=== PATIENT | male | born 1950 | race Caucasian/White ===

== ENCOUNTER → 2017-09-04 | Outpatient (CLI) | payer OTHER | END | disposition home or self-care (01) | LOC: CDC 08:16 | DX: Z01.810 Encounter for preprocedural cardiovascular examination (principal); K42.9 Umbilical hernia without obstruction or gangrene; I44.4 Left anterior fascicular block; I45.10 Unspecified right bundle-branch block | CPT/HCPCS: 93000 ==

== ENCOUNTER 2017-10-19 07:08 | Day surgery (SDC) | payer OTHER ==
[~2017-10-19] VITALS: Ht 177.8 cm; Wt 108.8 kg
[~2017-10-19 07:08] MED LIST: ACTOS45 MG PO; AMARYL4 MG PO; JANUVIA100 MG PO; LIPITOR40 MG PO; MEN'S MULTI-VI1 EACH PO; NORVASC10 MG PO; PRILOSEC OTC20 MG PO; ZESTRIL40 MG PO
[2017-10-19 07:33] VITALS: BP 137/63
[2017-10-19] MEDS ORDERED: NORCO 5/3251 TABLET PO (10:24)
[2017-10-19 11:47] VITALS: BP 155/67
[2017-10-19 12:36] VITALS: BP 138/64
[2017-10-19 14:35] VITALS: BP 170/77
[2017-10-19 15:28] VITALS: BP 140/76
== END 2017-10-19 15:30 | disposition home or self-care (01) ==
LOC: SDC 07:08
PROVIDERS: Surgery
PROC: 0WUF4JZ Supplement Abdominal Wall with Synthetic Substitute, Percutaneous Endoscopic Approach (ICD-10-PCS; principal; 2017-10-19)
DX: K42.9 Umbilical hernia without obstruction or gangrene (principal); I10 Essential (primary) hypertension; E11.9 Type 2 diabetes mellitus without complications; I44.4 Left anterior fascicular block; I45.10 Unspecified right bundle-branch block; E78.5 Hyperlipidemia, unspecified; Z87.891 Personal history of nicotine dependence
CPT/HCPCS: 82948; C1781; J0690; J1100; J1170; J2250; J2405; J3010

== ENCOUNTER 2017-10-28 18:55 | Inpatient (IN) | payer OTHER ==
[~2017-10-28] VITALS: Ht 177.8 cm; Wt 100.2 kg
[~2017-10-28 18:55] MED LIST changes: +NORCO 5/3251 TABLET PO
[2017-10-28 19:36] LABS: HEMATOCRIT 41.9 % (38.0-50.0); HEMOGLOBIN 14.3 G/DL (12.5-16.6); MCH 28.7 PG (29.0-34.0); MCHC 34.1 G/DL (30.0-36.0); RBC DIS.WIDTH-CV 12.8 % (11.8-14.6); RBC DIS.WIDTH-SD 38.9 % (39-53); RED BLOOD COUNT 4.99 M/uL (4.00-5.50); WHITE BLOOD COUNT 14.5 K/uL (4.1-10.2)
[2017-10-28 19:40] LABS: PLATELET COUNT 396 K/uL (156-360)
[2017-10-28 20:03] LABS: APPEARANCE SL.HAZY ((CLEAR)); BILIRUBIN NEGATIVE; BLOOD NEGATIVE; COLOR YELLOW ((YELLOW)); GLUCOSE (STRIP) 50; KETONES NEGATIVE; LEUKOCYTES NEGATIVE; NITRITE NEGATIVE; PROTEIN (STRIP) 30; SPECIFIC GRAVITY 1.023 (1.000-1.030); UROBILINOGEN 0.2 MG/DL (0.2-1.0)
[2017-10-28 20:22] LABS: ALBUMIN 4.3 g/dL (3.2-4.8); CHLORIDE 99 mEq/L (99-109); POTASSIUM 4.4 mEq/L (3.7-5.4); SODIUM 138 mEq/L (136-147)
[2017-10-28 20:25] LABS: GLUCOSE 266 mg/dL (70-99); TOTAL PROTEIN 8.4 g/dL (6.4-8.3)
[2017-10-28 20:27] LABS: TOTAL BILIRUBIN 0.7 mg/dL (0.0-1.0)
[2017-10-28 20:28] LABS: ALKALINE PHOSPHATASE 136 IU/L (3-129); CREATININE 2.2 mg/dL (0.6-1.3); GFR ESTIMATE (CALCULATED) 32 mL/min/ (58.99-99999)
[2017-10-28 20:29] LABS: UREA NITROGEN (BUN) 46 mg/dL (9-23)
[2017-10-28 20:30] LABS: AST (GOT) 17 IU/L (2-34)
[2017-10-28 20:31] LABS: ALT (GPT) 28 IU/L (3-49)
[2017-10-28 20:38] LABS: BACTERIA RARE /HPF; EPITHELIAL CELLS RARE /HPF; MUCUS 3+ /LPF; RED BLOOD CELLS RARE /HPF (0-5); UCUL ADDED? NO; WHITE BLOOD CELLS RARE /HPF (0-5)
[2017-10-28 20:39] LABS: AMORPHOUS URATES CRYSTALS RARE
[2017-10-28] MEDS ORDERED: ZANTAC75 M1 PO (23:04)
[2017-10-28] MEDS ORDERED: TYLENOL ARTHRI650 MG PO (23:04)
[2017-10-29 00:40] VITALS: BP 162/75
[2017-10-29 05:56] LABS: C DIFF TOXIN NEGATIVE (NEGATIVE)
[2017-10-29 06:48] LABS: CHLORIDE 103 MEQ/L (99-109); GFR ESTIMATE (CALCULATED) 35 mL/min/ (58.99-99999); GLUCOSE 224 mg/dL (70-99); SODIUM 139 MEQ/L (136-147); UREA NITROGEN (BUN) 47 mg/dL (9-23)
[2017-10-29 07:33] VITALS: BP 171/82
[2017-10-29 09:00] VITALS: BP 155/73
[2017-10-29 10:54] LABS: BASOPHIL (%) 0.1 % (0-1); EOSINOPHIL (%) 0 % (0-5); HEMATOCRIT 35.2 % (38.0-50.0); IMMATURE GRANULOCYTE (%) 0.1 % (0.0-0.7); LYMPHOCYTE (%) 8.5 % (15-42); LYMPHOCYTE COUNT 0.7 K/uL (1.0-2.8); MCH 28.4 PG (29.0-34.0); MCHC 32.4 G/DL (30.0-36.0); MCV 87.6 FL (86-99); MONOCYTE (%) 12.7 % (3-12); NEUTROPHIL (%) 78.6 % (45-76); NEUTROPHIL COUNT 6.1 K/uL (1.8-6.4); RBC DIS.WIDTH-CV 13.1 % (11.8-14.6); RBC DIS.WIDTH-SD 42.1 % (39-53); RED BLOOD COUNT 4.02 M/uL (4.00-5.50); WHITE BLOOD COUNT 7.7 K/uL (4.1-10.2)
[2017-10-29 10:57] LABS: HEMOGLOBIN 11.4 G/DL (12.5-16.6)
[2017-10-29 11:04] LABS: PLAT.SUFFICIENCY ADEQUATE
[2017-10-29 11:05] LABS: PLATELET COUNT 265 K/uL (156-360)
[2017-10-29 11:11] VITALS: BP 148/71
[2017-10-29 16:17] VITALS: BP 149/61
[2017-10-29 19:00] VITALS: BP 151/70
[2017-10-30] VITALS (8 sets, daily range): BP systolic 134–177; BP diastolic 68–84
[2017-10-30 09:16] LABS: HEMATOCRIT 32.8 % (38.0-50.0); HEMOGLOBIN 10.6 G/DL (12.5-16.6); MCH 28.2 PG (29.0-34.0); MCHC 32.3 G/DL (30.0-36.0); MCV 87.2 FL (86-99); PLATELET COUNT 245 K/uL (156-360); RBC DIS.WIDTH-CV 13.1 % (11.8-14.6); RBC DIS.WIDTH-SD 41.8 % (39-53); RED BLOOD COUNT 3.76 M/uL (4.00-5.50)
[2017-10-30 09:30] LABS: CHLORIDE 108 MEQ/L (99-109); POTASSIUM 3.8 MEQ/L (3.7-5.4); SODIUM 140 MEQ/L (136-147)
[2017-10-30 09:46] LABS: GLUCOSE 140 mg/dL (70-99); UREA NITROGEN (BUN) 28 mg/dL (9-23)
[2017-10-30 09:47] LABS: CREATININE 1.4 MG/DL (0.6-1.3); GFR ESTIMATE (CALCULATED) 53 mL/min/ (58.99-99999)
[2017-10-31 03:35] VITALS: BP 148/95
[2017-10-31 03:39] VITALS: BP 145/63
[2017-10-31 06:01] LABS: CHLORIDE 106 MEQ/L (99-109); CREATININE 1.3 MG/DL (0.6-1.3); GFR ESTIMATE (CALCULATED) 58 mL/min/ (58.99-99999); GLUCOSE 82 mg/dL (70-99); POTASSIUM 3.6 MEQ/L (3.7-5.4); SODIUM 139 MEQ/L (136-147); UREA NITROGEN (BUN) 18 mg/dL (9-23)
[2017-10-31 09:42] VITALS: BP 152/84
[2017-10-31] MEDS ORDERED: HYDRALAZINE HCL25 MG PO (10:08)
== END 2017-10-31 12:02 | disposition home or self-care (01) | DRG 389 ==
LOC: EME 18:55 → EDOF 23:22 → 5WEST 23:22 → EDOF 23:22 → ENRESERV 23:29 → 5WEST 10-29 00:22
PROVIDERS: Hospitalist; Internal Medicine; Nurse Practitioner Adult Health
DX: K56.0 Paralytic ileus (principal); N17.9 Acute kidney failure, unspecified; E86.0 Dehydration; E66.9 Obesity, unspecified; Z68.31 Body mass index [BMI] 31.0-31.9, adult; K43.9 Ventral hernia without obstruction or gangrene; I12.9 Hypertensive chronic kidney disease with stage 1 through stage 4 chronic kidney disease, or unspecified chronic kidney disease; N18.9 Chronic kidney disease, unspecified; E11.22 Type 2 diabetes mellitus with diabetic chronic kidney disease; E78.5 Hyperlipidemia, unspecified; K21.9 Gastro-esophageal reflux disease without esophagitis; Z83.3 Family history of diabetes mellitus
CPT/HCPCS: 74018; 74176; 80048; 80053; 81003; 82948; 83605; 85025; 85027; 87493; 93005; 99281; 99285; G0378; J1650; J1815; J2405; J2765; J7030